=== PATIENT | male | born 1970 | race Two or more races ===

== ENCOUNTER 2019-01-02 19:11 | Inpatient (IN) | payer MEDICAID, OTHER ==
[~2019-01-02] VITALS: Ht 167.6 cm; Wt 88.5 kg
[2019-01-02 19:30] VITALS: BP 127/75
[2019-01-02] MEDS ORDERED: LORazepam Inj 2mg/ml 1ml IV ONE (19:30)
--- NOTE | 2019-01-02 20:02 | Emergency Room Report ---
History of Present Illness General Chief Complaint: General Complaint Source: Patient, EMS Present Illness HPI Patient presents with a history of parathyroid disorder. He is brought in by EMS. He was apparently going between different procedures and became weak with total body tingling and feeling of disorientation. Paramedics found Accu-Chek to be normal. Patient denies pain at this time. He complains about generalized tingling and also tingling of his tongue and around his mouth. He denies chest pain, palpitations, nausea, vomiting, diarrhea or dysuria. He has generalized weakness. He states he feels anxious with this. Told that he has some renal problems. States had recent renal ultrasound. Family have CD of renal ultrasound. Told with parathyroidectomy the problems should be solved. 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 No sore throat, joint pain, rashes, depression, visual changes, headache. Allergies: Coded Allergies: No Known Allergies (Unverified , 01/02/19) Patient History Past Medical History: see triage record Social History: Denies: smoking, alcohol use, drug use Social History Narrative with family Reviewed Nursing Documentation: PMH: Agreed; PSxH: Agreed Review of Systems All Other Systems: negative except mentioned in HPI Physical Exam Vital Signs Date Time Temp Pulse Resp B/P (MAP) Pulse Ox O2 Delivery O2 Flow Rate FiO2 01/02/19 19:03 98.8 90 16 127/75 (92) 98 Room Air Sp02 EP Interpretation: reviewed, normal General Appearance: well appearing, no apparent distress, GCS 15, other - Eyes closed Head: normocephalic Eyes: bilateral eye normal inspection, bilateral eye PERRL, bilateral eye EOMI ENT: moist mucus membranes Neck: supple Respiratory: chest non-tender, lungs clear, normal breath sounds Cardiovascular #1: regular rate, rhythm Cardiovascular #2: 2+ radial (R) Gastrointestinal: normal inspection, normal bowel sounds, non tender, no mass, non-distended Genitourinary: no CVA tenderness Musculoskeletal: back normal, normal range of motion Neurologic: alert, oriented x3, motor strength/tone normal, DTRs symmetric, sensory intact - Reported tingling, cerebellar normal, speech normal Psychiatric: depressed affect Skin: no rash Medical Decision Making Diagnostic Impression: Primary Impression: Acute renal failure Qualified Codes: N17.9 - Acute kidney failure, unspecified Additional Impressions: Metabolic acidosis Hypokalemia Leukocytosis Qualified Codes: D72.828 - Other elevated white blood cell count Hypomagnesemia ER Course Patient presents with total body tingling with a history of parathyroid disorder. Differential includes anxiety, electrolyte abnormality including hypocalcemia and acute coronary syndrome amongst others. Evaluation will be with EKG, chest x-ray and labs including venous blood gas and ionized calcium. The patient will be treated with IV hydration and Ativan. Is placed on a box office attendant. EKG without injury. Chest x-ray normal. Labs with compensated metabolic acidosis. Leukocytosis. Renal failure and hypokalemia. Total calcium normal. In the face of acute renal failure with metabolic acidosis suspect renal tubular acidosis. No evidence of hyperventilation. Low potassium of concern. However in the face of acute renal failure potassium replacement problematic. Attempting to determine why ionized calcium was canceled. Magnesium added. Patient still symptomatic however somewhat improved with Ativan. In the face of weakness and tingling patient admitted for observation to determine the nature of the renal failure in the face of metabolic acidosis. Dialysis not indicated at this time. Discussed with . Admit telemetry observation. Late return of low magnesium. Attempting to determine why ionized calcium was canceled. Laboratory Tests Test 01/02/19 20:00 01/02/19 20:10 01/02/19 20:30 01/03/19 02:07 White Blood Count 13.7 K/UL (4.8-10.8) H Red Blood Count 4.17 M/UL (4.70-6.10) L Hemoglobin 13.3 G/DL (14.2-18.0) L Hematocrit 37.8 % (42.0-52.0) L Mean Corpuscular Volume 91 FL (80-99) Mean Corpuscular Hemoglobin 31.9 PG (27.0-31.0) H Mean Corpuscular Hemoglobin Concent 35.1 G/DL (32.0-36.0) Red Cell Distribution Width 10.9 % (11.6-14.8) L Platelet Count 253 K/UL (150-450) Mean Platelet Volume 6.8 FL (6.5-10.1) Neutrophils (%) (Auto) 65.5 % (45.0-75.0) Lymphocytes (%) (Auto) 22.1 % (20.0-45.0) Monocytes (%) (Auto) 10.5 % (1.0-10.0) H Eosinophils (%) (Auto) 0.7 % (0.0-3.0) Basophils (%) (Auto) 1.2 % (0.0-2.0) Prothrombin Time 9.3 SEC (9.30-11.50) Prothrombin Time INR 0.9 (0.9-1.1) PTT 20 SEC (23-33) L Urine Color Pale yellow Urine Appearance Clear Urine pH 6 (4.5-8.0) Urine Specific [place] 1.005 (1.005-1.035) Urine Protein Negative (NEGATIVE) Urine Glucose (UA) Negative (NEGATIVE) Urine Ketones Negative (NEGATIVE) Urine Blood Negative (NEGATIVE) Urine Nitrite Negative (NEGATIVE) Urine Bilirubin Negative (NEGATIVE) Urine Urobilinogen Normal MG/DL (0.0-1.0) Urine Leukocyte Esterase 1+ (NEGATIVE) H Urine RBC 0-2 /HPF (0 - 0) H Urine WBC 2-4 /HPF (0 - 0) Urine Squamous Epithelial Cells None /LPF (NONE/OCC) Urine Bacteria Few /HPF (NONE) Sodium Level 146 MMOL/L (136-145) H Potassium Level 3.0 MMOL/L (3.5-5.1) L Chloride Level 111 MMOL/L (98-107) H Carbon Dioxide Level 22 MMOL/L (21-32) Anion Gap 13 mmol/L (5-15) Blood Urea Nitrogen 28 mg/dL (7-18) H Creatinine 2.5 MG/DL (0.55-1.30) H Estimate Glomerular Filtration Rate 27.9 mL/min (>60) Glucose Level 110 MG/DL (74-106) H Calcium Level 8.3 MG/DL (8.5-10.1) L Total Bilirubin 0.4 MG/DL (0.2-1.0) Aspartate Amino Transferase (AST) 24 U/L (15-37) Alanine Aminotransferase (ALT) 30 U/L (12-78) Alkaline Phosphatase 1298 U/L (46-116) H Total Creatine Kinase 168 U/L (26-308) Troponin I 0.000 ng/mL (0.000-0.056) Pro-B-Type Natriuretic Peptide 530 pg/mL (0-125) H Total Protein 8.0 G/DL (6.4-8.2) Albumin 3.8 G/DL (3.4-5.0) Globulin 4.2 g/dL Albumin/Globulin Ratio 0.9 (1.0-2.7) L Urine Opiates Screen Negative (NEGATIVE) Urine Barbiturates Screen Negative (NEGATIVE) Phencyclidine (PCP) Screen Negative (NEGATIVE) Urine Amphetamines Screen Negative (NEGATIVE) Urine Benzodiazepines Screen Negative (NEGATIVE) Urine Cocaine Screen Negative (NEGATIVE) Urine Marijuana (THC) Screen Negative (NEGATIVE) Venous Blood pH 7.296 Venous Blood Partial Pressure CO2 38.2 Venous Blood Partial Pressure O2 45.3 Venous Blood HCO3 18.2 Venous Blood Total Carbon Dioxide 38.2 Venous Bld O2 Saturation (Measured) Pending Venous Blood Oxygen Saturation 71.6 Venous Blood Base Excess -7.6 Methemoglobin 0.6 Sodium (Blood Gas) Pending Urine Random Sodium 37 mmol/L (20-110) Urine Creatinine 137.7 MG/DL (30.0-125.0) H Magnesium Level 1.3 MG/DL (1.8-2.4) L EKG Diagnostic Results Rate: normal Rhythm: NSR ST Segments: no acute changes Rhythm Strip Diag. Results EP Interpretation: yes Rhythm: NSR, no PVC's, no ectopy Chest X-Ray Diagnostic Results Chest X-Ray Diagnostic Results : Chest X-Ray Ordered: Yes # of Views/Limited/Complete: 1 View Indication: Shortness of Breath EP Interpretation: Yes Interpretation: no consolidation, no effusion, no pneumothorax Impression: No acute disease Electronically Signed by: Electronically signed by Israel Rojo MD Last Vital Signs Date Time Temp Pulse Resp B/P (MAP) Pulse Ox O2 Delivery O2 Flow Rate FiO2 01/03/19 01:01 Room Air 01/03/19 00:34 99.1 118/68 (85) 99 01/02/19 23:45 84 14 Status: improved Disposition: PLACE IN OBSERVATION Condition: Serious Israel Rojo MD Jan 02, 2019 20:02
[2019-01-02 20:53] LABS: BASOPHILS % (AUTO) 1.2 % (0.0-2.0); EOSINOPHILS % (AUTO) 0.7 % (0.0-3.0); HEMATOCRIT 37.8 % (42.0-52.0); HEMOGLOBIN 13.3 G/DL (14.2-18.0); LYMPHOCYTES % (AUTO) 22.1 % (20.0-45.0); MEAN CORPUSCULAR VOLUME 91 FL (80-99); MONOCYTES % (AUTO) 10.5 % (1.0-10.0); NEUTROPHILS % (AUTO) 65.5 % (45.0-75.0); PLATELET COUNT 253 K/UL (150-450); RED BLOOD COUNT 4.17 M/UL (4.70-6.10); RED CELL DISTRIBUTION WIDTH 10.9 % (11.6-14.8); WHITE BLOOD COUNT 13.7 K/UL (4.8-10.8)
[2019-01-02 20:58] LABS: APPEARANCE,URINE CLEAR; BILIRUBIN, URINE NEGATIVE (NEGATIVE); COLOR,URINE PALE YELLOW; GLUCOSE, URINE (UA) NEGATIVE (NEGATIVE); KETONES,URINE NEGATIVE (NEGATIVE); LEUKOCYTE ESTERASE ,URINE 1+ (NEGATIVE); NITRITE,URINE NEGATIVE (NEGATIVE); PH,URINE 6 (4.5-8.0); PROTEIN,URINE NEGATIVE (NEGATIVE); UROBILINOGEN,URINE NORMAL MG/DL (0.0-1.0)
[2019-01-02 21:08] LABS: INR 0.9 (0.9-1.1)
[2019-01-02 21:15] LABS: ANION GAP 13 mmol/L (5-15); BLOOD UREA NITROGEN 28 mg/dL (7-18); CALCIUM 8.3 MG/DL (8.5-10.1); CARBON DIOXIDE 22 MMOL/L (21-32); CHLORIDE 111 MMOL/L (98-107); CREATININE 2.5 MG/DL (0.55-1.30); SODIUM 146 MMOL/L (136-145)
[2019-01-02 21:29] LABS: ALANINE AMINOTRANSFERASE 30 U/L (12-78); ALBUMIN 3.8 G/DL (3.4-5.0); ALBUMIN/GLOBULIN RATIO 0.9 (1.0-2.7); ALKALINE PHOSPHATASE 1298 U/L (46-116); ASPARTATE AMINO TRANSFERASE 24 U/L (15-37); BILIRUBIN,TOTAL 0.4 MG/DL (0.2-1.0); CREATINE KINASE 168 U/L (26-308)
[2019-01-02 22:12] VITALS: BP 128/72
[2019-01-03 00:34] VITALS: BP 118/68
[2019-01-03] MEDS ORDERED: NKM (00:43)
[2019-01-03 04:00] VITALS: BP 123/68
[2019-01-03 08:00] VITALS: BP 118/67
[2019-01-03] MEDS: Magnesium Oxide 400mg tab ORAL SCH ×3 (10:29→17:45)
[2019-01-03] MEDS: Calcium Carbonate 500mg w/Vit D 200iu tab ORAL SCH ×3 (10:29→17:45)
--- NOTE | 2019-01-03 11:43 | Diagnostic Imaging Report ---
Indication: Dyspnea Comparison: None A single view chest radiograph was obtained. Findings: Cardiomediastinal appearance is within normal limits for age. The lungs are clear. Pulmonary vascularity is appropriate. The diaphragmatic contour is smooth and costophrenic angles are sharp. No pleural effusions are identified. The bones are unremarkable. Impression: No acute findings
[2019-01-03 12:00] VITALS: BP 118/74
[2019-01-03 13:34] LABS: ANION GAP 12 mmol/L (5-15); BLOOD UREA NITROGEN 23 mg/dL (7-18); CALCIUM 7.7 MG/DL (8.5-10.1); CARBON DIOXIDE 21 MMOL/L (21-32); CHLORIDE 114 MMOL/L (98-107); CREATININE 2.1 MG/DL (0.55-1.30); POTASSIUM 3.4 MMOL/L (3.5-5.1); SODIUM 146 MMOL/L (136-145)
[2019-01-03] MEDS ORDERED: Calcium Gluconate 10% 2 GM in NS 110 ML IVPB SCH (14:00)
--- NOTE | 2019-01-03 15:55 | Diagnostic Imaging Report ---
Indication:Elevated Bun and Creatinine. Technique: Grayscale and duplex Doppler imaging of the kidneys performed. Comparison: None Findings: The size, contour, and echogenicity of both kidneys are within normal limits. There is no hydronephrosis.. The right kidney measures 10.7 cm. in length. The left kidney measures 10 cm. in length. The IVC is patent. Urinary bladder is unremarkable. IMPRESSION: Negative ultrasound the kidneys.
[2019-01-03 16:00] VITALS: BP 128/75
--- NOTE | 2019-01-03 17:00 | Consultation ---
DATE OF CONSULTATION: 01/03/2019 CONSULTING PHYSICIAN: Gonzalo Dukes M.D. REASON FOR CONSULTATION: 1. Acute kidney. 2. Hypocalcemia. HISTORY OF PRESENT ILLNESS: The patient is a pleasant 48-year-old gentleman with a history of a parathyroid disorder, who was admitted overnight for further evaluation and care of body tingling and mild disorientation, not feeling well. The patient denies any chest pain, nausea, vomiting, or diarrhea. Noted to have electrolyte abnormalities with calcium of 1.01, magnesium of 1.3, and creatinine of 2.5. The patient states he has not had any renal dysfunction in the past. Also noted to be hypokalemic with potassium at 3.0. PAST MEDICAL HISTORY: Parathyroid disorder. ALLERGIES: No known drug allergies. SOCIAL HISTORY: No tobacco, alcohol, or illicit drug use. FAMILY HISTORY: Positive for hypertension. REVIEW OF SYSTEMS: NEUROLOGIC: The patient denies headache, change in vision, syncope, or presyncopal episodes. CARDIOVASCULAR: No current chest pain, palpitations, or angina. PULMONARY: No difficulty breathing, productive cough, or sputum. GASTROINTESTINAL/GENITOURINARY: No nausea, vomiting, or diarrhea. ENDOCRINE: No night sweats, fevers, or chills. MUSCULOSKELETAL: The patient is feeling mildly tingling over his extremities. PHYSICAL EXAMINATION: VITAL SIGNS: Blood pressure 118/67, respiratory rate 18, pulse 85, and temperature 98.1. 98% oxygen saturation on room air. GENERAL: The patient is awake and alert, not in distress. HEENT: Extraocular muscles intact. No lymphadenopathy noted. CARDIOVASCULAR: S1, S2. No rubs or gallops. PULMONARY: Clear to auscultation bilaterally. No rales, rhonchi, or wheezes. ABDOMEN: Nondistended and nontender. EXTREMITIES: No edema noted. LABORATORY DATA: Labs dated January 02, 2019 - sodium 146, potassium 3. Calcium ionized 1.01. Magnesium 1.3. Hemoglobin 13.3, white cell count 13.7, and platelet count 253,000. ASSESSMENT: 1. Acute kidney injury. At this time most likely secondary to component of intravascular volume depletion. We will continue IV hydration. 2. Parathyroid disorder. Most likely the patient may have been hyperthyroid and is now hypoparathyroid, on calcium and vitamin D. We will replace his calcium and check a PTH level. We will further investigate underlying etiology of parathyroid disorder. 3. Hypomagnesemia and hypokalemia. We will replace on a daily basis. Repeat labs are currently pending. 4. Dehydration. Continue IV fluids. 5. Acute kidney injury. At this time, etiology not entirely clear. Renal ultrasound ordered. Possibility of intravascular volume depletion. Recheck labs and continue hydration. Gonzalo Dukes MD DR: LES JOB#: [id number] CC:
--- NOTE | 2019-01-03 17:45 | History and Physical Report ---
DATE OF ADMISSION: 01/02/2019 HISTORY OF PRESENT ILLNESS: This is a 48-year-old male, who is currently undergoing treatment for hyperparathyroidism. He came in, brought in by paramedics due to feeling of being disoriented, feeling weak, and having tingling in his body. His Accu-Checks were normal, however, in the ER, he was found to be hypocalcemic and hypomagnesemic. He was given calcium and magnesium, and admitted to the hospital. He is also found to be having acute renal failure and was given IV hydration. It is unclear to me if he has already undergone atherectomy or not. PAST MEDICAL HISTORY: Notable for hyperparathyroidism. HOME MEDICATIONS: The patient unable to recall. REVIEW OF SYSTEMS: Denies any headaches, hematemesis, melena, hematochezia, night sweats, or weight loss. PHYSICAL EXAMINATION: GENERAL: Reveals a 48-year-old male. HEENT: Unremarkable. LUNGS: Clear breath sounds bilaterally. HEART: Normal heart sounds. ABDOMEN: Soft. EXTREMITIES: There is no edema. NEUROLOGIC: Nonfocal. LABORATORY DATA: Lab testing is notable for ionized calcium of 1.0. White count [id number], hemoglobin of 13, and platelet count is normal. Creatinine 2.5. Sodium 146, potassium 3. IMPRESSION: 1. disorder with hypokalemia and hyponatremia. 2. Acute renal failure. 3. Hypocalcemia. 4. Hypomagnesemia. DISCUSSION: Admit to the hospital. Start IV hydration. Consult Nephrology. Continue present care. We will replace potassium, magnesium, and calcium. We will follow carefully. Brayan Harding M.D. DR: ANITA JOB#: [id number] CC:
[2019-01-03 20:00] VITALS: BP 116/63
[2019-01-04] VITALS: BP 122/72
[2019-01-04 04:00] VITALS: BP 121/65
[2019-01-04 06:32] LABS: BASOPHILS % (AUTO) 0.7 % (0.0-2.0); EOSINOPHILS % (AUTO) 1.1 % (0.0-3.0); HEMATOCRIT 30.4 % (42.0-52.0); HEMOGLOBIN 10.4 G/DL (14.2-18.0); LYMPHOCYTES % (AUTO) 32.5 % (20.0-45.0); MEAN CORPUSCULAR VOLUME 90 FL (80-99); MONOCYTES % (AUTO) 10.4 % (1.0-10.0); NEUTROPHILS % (AUTO) 55.3 % (45.0-75.0); PLATELET COUNT 231 K/UL (150-450); RED BLOOD COUNT 3.39 M/UL (4.70-6.10); RED CELL DISTRIBUTION WIDTH 11.3 % (11.6-14.8); WHITE BLOOD COUNT 9.8 K/UL (4.8-10.8)
[2019-01-04 07:02] LABS: ALANINE AMINOTRANSFERASE 25 U/L (12-78); ALBUMIN 3.1 G/DL (3.4-5.0); ALBUMIN/GLOBULIN RATIO 0.8 (1.0-2.7); ALKALINE PHOSPHATASE 1122 U/L (46-116); ANION GAP 13 mmol/L (5-15); ASPARTATE AMINO TRANSFERASE 23 U/L (15-37); BILIRUBIN,TOTAL 0.4 MG/DL (0.2-1.0); BLOOD UREA NITROGEN 21 mg/dL (7-18); CALCIUM 7.3 MG/DL (8.5-10.1); CARBON DIOXIDE 18 MMOL/L (21-32); CHLORIDE 114 MMOL/L (98-107); CREATININE 2.1 MG/DL (0.55-1.30); POTASSIUM 3.1 MMOL/L (3.5-5.1); SODIUM 145 MMOL/L (136-145)
[2019-01-04 08:00] VITALS: BP 116/72
--- NOTE | 2019-01-04 08:10 | Nephrology Progress Note ---
Assessment/Plan Assessment/Plan: A/P 1) Hypocalcemia- being replaced - PTH pending - ?? says awaiting PTHdectomy- unclear what treatment he has received 2) Hypokalemia and MG- all being replaced today 3) MICHEL on CKD??- Cr down to 2.1 - IVFs and Renal US negative Subjective Date patient seen: Jan 04, 2019 Time patient seen: 08:05 ROS Limited/Unobtainable: No Neurologic/Psychiatric: Reports: tingling Allergies: Coded Allergies: No Known Allergies (Unverified , 01/02/19) Subjective Patient with tingling in hand Objective Last 24 Hour Vital Signs Date Time Temp Pulse Resp B/P (MAP) Pulse Ox O2 Delivery O2 Flow Rate FiO2 01/04/19 04:00 76 01/04/19 04:00 98.1 80 17 121/65 (83) 98 01/04/19 00:00 98.9 72 16 122/72 (89) 98 01/04/19 00:00 88 01/03/19 21:00 Room Air 01/03/19 20:00 99.2 91 17 116/63 (80) 97 01/03/19 20:00 92 01/03/19 16:00 98.7 96 18 128/75 (92) 98 01/03/19 16:00 92 01/03/19 12:00 98.6 89 18 118/74 (89) 98 01/03/19 12:00 85 01/03/19 09:00 Room Air Intake and Output 01/03/19 01/04/19 19:00 07:00 Intake Total 840 ml 1007.5 ml Balance 840 ml 1007.5 ml Intake Oral 840 ml IV Total 1007.5 ml # Voids 3 Laboratory Tests 01/03/19 12:50: Sodium Level 146H, Potassium Level 3.4L, Chloride Level 114H, Carbon Dioxide Level 21, Anion Gap 12, Blood Urea Nitrogen 23H, Creatinine 2.1H, Estimat Glomerular Filtration Rate 34.2, Glucose Level 114H, Calcium Level 7.7L 01/04/19 05:33: Sodium Level 145, Potassium Level 3.1L, Chloride Level 114H, Carbon Dioxide Level 18L, Anion Gap 13, Blood Urea Nitrogen 21H, Creatinine 2.1H, Estimat Glomerular Filtration Rate 34.2, Glucose Level 97, Calcium Level 7.3L, White Blood Count 9.8, Red Blood Count 3.39L, Hemoglobin 10.4L, Hematocrit 30.4L, Mean Corpuscular Volume 90, Mean Corpuscular Hemoglobin 30.8, Mean Corpuscular Hemoglobin Concent 34.3, Red Cell Distribution Width 11.3L, Platelet Count 231, Mean Platelet Volume 5.9L, Neutrophils (%) (Auto) 55.3, Lymphocytes (%) (Auto) 32.5, Monocytes (%) (Auto) 10.4H, Eosinophils (%) (Auto) 1.1, Basophils (%) ( Auto) 0.7, Ionized Calcium (Measured) 1.02L, Magnesium Level 1.1L, Total Bilirubin 0.4, Aspartate Amino Transf (AST/SGOT) 23, Alanine Aminotransferase ( ALT/SGPT) 25, Alkaline Phosphatase 1122H, Total Protein 6.8, Albumin 3.1L, Globulin 3.7, Albumin/Globulin Ratio 0.8L Height (Feet): 5 Height (Inches): 6.00 Weight (Pounds): 188 General Appearance: no apparent distress, alert EENT: normal ENT inspection Neck: normal alignment, supple Cardiovascular: normal rate, regular rhythm Respiratory/Chest: lungs clear, normal breath sounds Abdomen: non tender, soft Edema: no edema noted Arm (L), no edema noted Arm (R), no edema noted Leg (L), no edema noted Leg (R), no edema noted Pedal (L), no edema noted Pedal (R), no edema noted Generalized Gonzalo Dukes MD Jan 04, 2019 08:10
[2019-01-04] MEDS: Magnesium Oxide 400mg tab ORAL SCH ×3 (08:33→18:00)
[2019-01-04] MEDS: Calcium Carbonate 500mg w/Vit D 200iu tab ORAL SCH ×3 (08:33→18:00)
[2019-01-04] MEDS ORDERED: Magnesium Oxide 400mg tab ORAL SCH (09:30)
--- NOTE | 2019-01-04 09:30 | Pulmonology Progress Note ---
Assessment/Plan Assessment/Plan IMPRESSION: 1. Electrolyte disorder with hypokalemia and hyponatremia. 2. Acute renal failure. 3. Hypocalcemia. 4. Hypomagnesemia. DISCUSSION: Admitted to the hospital. Continue IV hydration. Consult from Nephrology noted. Continue present care. I will replace potassium, magnesium, and calcium. I will follow carefully. Endocrine consult requested Brayan Harding M.D. Subjective Interval Events: None new Constitutional: Reports: no symptoms HEENT: Repors: no symptoms Respiratory: Reports: no symptoms Cardiovascular: Reports: no symptoms Gastrointestinal/Abdominal: Reports: no symptoms Allergies: Coded Allergies: No Known Allergies (Unverified , 01/02/19) Objective Last 24 Hour Vital Signs Date Time Temp Pulse Resp B/P (MAP) Pulse Ox O2 Delivery O2 Flow Rate FiO2 01/04/19 04:00 76 01/04/19 04:00 98.1 80 17 121/65 (83) 98 01/04/19 00:00 98.9 72 16 122/72 (89) 98 01/04/19 00:00 88 01/03/19 21:00 Room Air 01/03/19 20:00 99.2 91 17 116/63 (80) 97 01/03/19 20:00 92 01/03/19 16:00 98.7 96 18 128/75 (92) 98 01/03/19 16:00 92 01/03/19 12:00 98.6 89 18 118/74 (89) 98 01/03/19 12:00 85 Intake and Output 01/03/19 01/04/19 19:00 07:00 Intake Total 840 ml 1007.5 ml Balance 840 ml 1007.5 ml Intake Oral 840 ml IV Total 1007.5 ml # Voids 3 General Appearance: no acute distress HEENT: normocephalic Respiratory/Chest: chest wall non-tender, lungs clear Cardiovascular: normal peripheral pulses, normal rate Laboratory Tests 01/03/19 12:50: Sodium Level 146H, Potassium Level 3.4L, Chloride Level 114H, Carbon Dioxide Level 21, Anion Gap 12, Blood Urea Nitrogen 23H, Creatinine 2.1H, Estimat Glomerular Filtration Rate 34.2, Glucose Level 114H, Calcium Level 7.7L 01/04/19 05:33: Sodium Level 145, Potassium Level 3.1L, Chloride Level 114H, Carbon Dioxide Level 18L, Anion Gap 13, Blood Urea Nitrogen 21H, Creatinine 2.1H, Estimat Glomerular Filtration Rate 34.2, Glucose Level 97, Calcium Level 7.3L, White Blood Count 9.8, Red Blood Count 3.39L, Hemoglobin 10.4L, Hematocrit 30.4L, Mean Corpuscular Volume 90, Mean Corpuscular Hemoglobin 30.8, Mean Corpuscular Hemoglobin Concent 34.3, Red Cell Distribution Width 11.3L, Platelet Count 231, Mean Platelet Volume 5.9L, Neutrophils (%) (Auto) 55.3, Lymphocytes (%) (Auto) 32.5, Monocytes (%) (Auto) 10.4H, Eosinophils (%) (Auto) 1.1, Basophils (%) ( Auto) 0.7, Calcium (Send out) [Pending], Ionized Calcium (Measured) 1.02L, Magnesium Level 1.1L, Total Bilirubin 0.4, Aspartate Amino Transf (AST/SGOT) 23 , Alanine Aminotransferase (ALT/SGPT) 25, Alkaline Phosphatase 1122H, Total Protein 6.8, Albumin 3.1L, Globulin 3.7, Albumin/Globulin Ratio 0.8L, Parathyroid Hormone (Intact) [Pending] Current Medications Medications (Trade) Dose Ordered Sig/Aime Route PRN Reason Start Time Stop Time Status Last Admin Dose Admin Acetaminophen (Tylenol) 650 mg Q6H PRN ORAL Mild Pain/Temp > 100.5 01/03/19 01:45 02/02/19 01:44 01/03/19 02:25 Calcium Gluconate 2 gm/Sodium Chloride 130 ml @ 130 mls/hr ONCE ONCE IVPB 01/04/19 11:00 01/04/19 11:59 Calcium/Vitamin D (OsCal D) 1 tab THREE TIMES A DAY ORAL 01/03/19 10:15 02/02/19 10:14 01/04/19 08:33 Magnesium Oxide (Mag-Ox 400mg) 400 mg THREE TIMES A DAY ORAL 01/03/19 10:15 02/02/19 10:14 01/04/19 08:33 Magnesium Sulfate 100 ml @ 100 mls/hr Q1H IVPB 01/04/19 08:30 01/04/19 10:29 01/04/19 08:32 Potassium Chloride 100 ml @ 100 mls/hr Q1H IVPB 01/04/19 08:30 01/04/19 10:29 01/04/19 08:32 Potassium Chloride (K-Dur) 40 meq DAILY ORAL 01/04/19 09:00 02/03/19 08:59 01/04/19 08:33 Sodium 1,000 ml @ 75 mls/hr [id number] IV 01/04/19 09:30 02/03/19 09:29 Brayan Harding MD Jan 04, 2019 09:30
[2019-01-04] MEDS: 1/2NS w/KCl 20mEq 1000ml 1,000 ML IV SCH ×2 (10:40→22:22)
[2019-01-04] MEDS ORDERED: Calcium Gluconate 10% 2 GM in NS 110 ML IVPB ONE (11:00)
[2019-01-04 12:00] VITALS: BP 122/74
--- NOTE | 2019-01-04 15:07 | Cardiology Report ---
APPROVED REPORT EKG Measurement Heart [id number] Normal sinus rhythm Normal ECG
[2019-01-04 16:00] VITALS: BP 119/71
[2019-01-04 20:00] VITALS: BP 126/85
[2019-01-05] VITALS: BP 129/70
[2019-01-05 04:00] VITALS: BP 115/68
--- NOTE | 2019-01-05 06:37 | Pulmonology Progress Note ---
Assessment/Plan Assessment/Plan IMPRESSION: 1. Electrolyte disorder with hypokalemia and hyponatremia. 2. Acute renal failure. 3. Hypocalcemia. 4. Hypomagnesemia. DISCUSSION: Admitted to the hospital. Continue IV hydration. Consult from Nephrology noted. Continue present care. I have replaced potassium, magnesium, and calcium. I will follow carefully. Await AM labs Endocrine consult requested Brayan Harding M.D. Subjective Interval Events: None new noted Constitutional: Reports: no symptoms HEENT: Repors: no symptoms Respiratory: Reports: no symptoms Cardiovascular: Reports: no symptoms Gastrointestinal/Abdominal: Reports: no symptoms Genitourinary: Reports: no symptoms Neurologic: Reports: no symptoms Allergies: Coded Allergies: No Known Allergies (Unverified , 01/02/19) Objective Last 24 Hour Vital Signs Date Time Temp Pulse Resp B/P (MAP) Pulse Ox O2 Delivery O2 Flow Rate FiO2 01/05/19 04:00 99.3 79 18 115/68 (84) 98 01/05/19 04:00 71 01/05/19 00:00 85 01/05/19 00:00 99.7 85 18 129/70 (89) 97 01/04/19 23:03 85 01/04/19 21:00 Room Air 01/04/19 20:00 99.3 85 17 126/85 (99) 98 01/04/19 16:00 87 01/04/19 16:00 97.8 78 17 119/71 (87) 97 01/04/19 12:00 84 01/04/19 12:00 98.0 77 18 122/74 (90) 97 01/04/19 09:00 Room Air 01/04/19 08:00 97.7 76 17 116/72 (87) 98 01/04/19 08:00 92 Intake and Output 01/04/19 01/05/19 18:59 06:59 Intake Total 1855 ml Balance 1855 ml Intake Oral 800 ml IV Total 1055 ml General Appearance: no acute distress HEENT: normocephalic Respiratory/Chest: chest wall non-tender, lungs clear Cardiovascular: normal peripheral pulses, normal rate Abdomen: normal bowel sounds Current Medications Medications (Trade) Dose Ordered Sig/Aime Route PRN Reason Start Time Stop Time Status Last Admin Dose Admin Acetaminophen (Tylenol) 650 mg Q6H PRN ORAL Mild Pain/Temp > 100.5 01/03/19 01:45 02/02/19 01:44 01/05/19 00:30 Calcium Carbonate (Os-Marcial) 1,250 mg Q8HR ORAL 01/04/19 14:00 02/03/19 13:59 01/05/19 05:11 Calcium/Vitamin D (OsCal D) 1 tab THREE TIMES A DAY ORAL 01/03/19 10:15 02/02/19 10:14 01/04/19 18:00 Magnesium Oxide (Mag-Ox 400mg) 400 mg THREE TIMES A DAY ORAL 01/03/19 10:15 02/02/19 10:14 01/04/19 18:00 Potassium Chloride (K-Dur) 40 meq TWICE A DAY ORAL 01/04/19 18:00 02/03/19 17:59 01/04/19 18:00 Sodium 1,000 ml @ 75 mls/hr [id number] IV 01/04/19 09:30 02/03/19 09:29 01/04/19 22:22 Brayan Harding MD Jan 05, 2019 06:36
[2019-01-05 08:00] VITALS: BP 124/72
[2019-01-05 08:09] LABS: ALANINE AMINOTRANSFERASE 26 U/L (12-78); ALBUMIN 3.4 G/DL (3.4-5.0); ALBUMIN/GLOBULIN RATIO 0.9 (1.0-2.7); ALKALINE PHOSPHATASE 1246 U/L (46-116); ANION GAP 14 mmol/L (5-15); ASPARTATE AMINO TRANSFERASE 28 U/L (15-37); BILIRUBIN,TOTAL 0.5 MG/DL (0.2-1.0); BLOOD UREA NITROGEN 20 mg/dL (7-18); CALCIUM 8.2 MG/DL (8.5-10.1); CARBON DIOXIDE 17 MMOL/L (21-32); CHLORIDE 116 MMOL/L (98-107); POTASSIUM 3.8 MMOL/L (3.5-5.1); SODIUM 147 MMOL/L (136-145)
[2019-01-05] MEDS: Calcium Carbonate 500mg w/Vit D 200iu tab ORAL SCH ×2 (08:34→13:31)
[2019-01-05] MEDS: Magnesium Oxide 400mg tab ORAL SCH ×2 (08:34→13:30)
--- NOTE | 2019-01-05 08:45 | Consultation ---
DATE OF CONSULTATION: 01/05/2019 ENDOCRINOLOGY CONSULTATION CONSULTING PHYSICIAN: Avi Chaudhary M.D. REFERRING PHYSICIAN: Brayan Harding M.D. REASON FOR CONSULTATION: Hypocalcemia. HISTORY OF PRESENT ILLNESS: The patient is a 48-year-old male who presented to the hospital due to disorientation, weakness, and having the tingling in his body. He was found to be severely hypocalcemic. The patient was told that he has been under treatment for hyperparathyroidism, but not sure exactly what kind of treatment he has been receiving. The patient was also noted to be hypomagnesemic. The patient was found to be in acute renal failure. Due to the acute renal failure, given IV hydration. I was called to assist in the management of hypocalcemia. Nephrology is consulted as well. PAST MEDICAL HISTORY: Questionable hyperparathyroidism. MEDICATIONS AT HOME: None. FAMILY HISTORY: Noncontributory. SOCIAL HISTORY: No smoking, alcohol, or drug use. REVIEW OF SYSTEMS: As per HPI. PHYSICAL EXAMINATION: GENERAL: He is awake and alert. VITAL SIGNS: Blood pressure is 130/80, pulse of 80, temperature 98.2, respiratory rate of 18. HEENT: Pupils reactive to light. Sclerae anicteric. NECK: No JVD. No thyromegaly. LUNGS: Clear. HEART: Regular rate and rhythm. ABDOMEN: Positive bowel sounds. EXTREMITIES: No clubbing, cyanosis, or edema. LABORATORY VALUES: Sodium 145, potassium 3.9, chloride 114, bicarb 18, BUN 21, creatinine 2.1, glucose 97. Alkaline phosphatase of 1122. Magnesium of 1.3. DIAGNOSES: 1. Hypocalcemia. 2. Hypomagnesemia. 3. Hypokalemia. DISCUSSION: The patient tells me that he has hyperparathyroidism and he was told he needs parathyroid surgery. He presented with hypocalcemia and he was receiving some sort of treatment, which he does not know the name. There is a possibility of the patient was treated with high dose of Sensipar and that made him hypocalcemic. Other possibility is that he was also being treated with IV bisphosphonate and maybe that made him hypocalcemic. The condition has been going on for 4 to 5 months. So, I doubt that the patient has any genetic disorders causing hypocalcemia or hypoparathyroidism since then he would have issues with calcium for many years. For the time being, we will replace the calcium, replace the magnesium, and we will follow the PTH level, which is pending. I will also send a vitamin D level to rule out severe vitamin D deficiency and also phosphorus levels will be sent to confirm such diagnosis. If so, the patient will benefit from vitamin D replacement, which will correct the calcium. Magnesium should be replaced regardless. I will follow the results and further advice. Thank you, Dr. Harding, for the courtesy of this consultation. Avi Chaudhary M.D. DR: GOMEZ JOB#: [id number] CC: NILO
[2019-01-05 08:57] LABS: PHOSPHORUS 2.5 MG/DL (2.5-4.9)
--- NOTE | 2019-01-05 09:12 | Nephrology Progress Note ---
Assessment/Plan Assessment/Plan: A/P 1) Hypocalcemia- being replaced prn - PTH pending - ?? says awaiting PTHdectomy- unclear what treatment he has received ( Sensipar/bisphosphonate etc) 2) Hypokalemia and MG- all being replaced today again 3) MICHEL on CKD??- Cr down to 2.1 - IVFs and Renal US negative Will assist with DC and f/u renal as out patient Subjective Date patient seen: Jan 05, 2019 Time patient seen: 09:10 ROS Limited/Unobtainable: No Allergies: Coded Allergies: No Known Allergies (Unverified , 01/02/19) Subjective Patient stable no complaints Objective Last 24 Hour Vital Signs Date Time Temp Pulse Resp B/P (MAP) Pulse Ox O2 Delivery O2 Flow Rate FiO2 01/05/19 04:00 99.3 79 18 115/68 (84) 98 01/05/19 04:00 71 01/05/19 00:00 85 01/05/19 00:00 99.7 85 18 129/70 (89) 97 01/04/19 23:03 85 01/04/19 21:00 Room Air 01/04/19 20:00 99.3 85 17 126/85 (99) 98 01/04/19 16:00 87 01/04/19 16:00 97.8 78 17 119/71 (87) 97 01/04/19 12:00 84 01/04/19 12:00 98.0 77 18 122/74 (90) 97 Intake and Output 01/04/19 01/05/19 18:59 06:59 Intake Total 1855 ml Balance 1855 ml Intake Oral 800 ml IV Total 1055 ml Laboratory Tests 01/05/19 05:45: Sodium Level 147H, Potassium Level 3.8, Chloride Level 116H, Carbon Dioxide Level 17L, Anion Gap 14, Blood Urea Nitrogen 20H, Creatinine 2.0H, Estimat Glomerular Filtration Rate 36.1, Glucose Level 81, Calcium Level 8.2L, Ionized Calcium (Measured) 1.07L, Phosphorus Level 2.5, Magnesium Level 1.5L, Total Bilirubin 0.5, Aspartate Amino Transf (AST/SGOT) 28, Alanine Aminotransferase ( ALT/SGPT) 26, Alkaline Phosphatase 1246H, Total Protein 7.2, Albumin 3.4, Globulin 3.8, Albumin/Globulin Ratio 0.9L, Vitamin D 25-Hydroxy [Pending], 25- Hydroxy Vitamin D2 [Pending], 25-Hydroxy Vitamin D3 [Pending], Thyroid Stimulating Hormone (TSH) 3.720, Free Thyroxine [Pending] Height (Feet): 5 Height (Inches): 6.00 Weight (Pounds): 166 General Appearance: no apparent distress, alert EENT: normal ENT inspection Neck: normal alignment Cardiovascular: normal rate, regular rhythm Abdomen: non tender, soft Edema: no edema noted Arm (L), no edema noted Arm (R), no edema noted Leg (L), no edema noted Leg (R), no edema noted Pedal (L), no edema noted Pedal (R), no edema noted Generalized Gonzalo Dukes MD Jan 05, 2019 09:12
--- NOTE | 2019-01-05 09:15 | Discharge Instructions ---
Discharge Instructions Discharge Instructions Services at Discharge: day care Diet: 2 GM sodium (low sodium) Activity: no restrictions Follow Up Orders Follow up renal and PCP 1 week Continue Magnesium and calcium supplements For Congestive Heart Failure Reminder Report to your physician any weight gain of 5 pounds or more in one week. Gonzalo Dukes MD Jan 05, 2019 09:15
[2019-01-05] MEDS ORDERED: Calcium Gluconate 10% 2 GM in NS 110 ML IVPB ONE (11:00)
[2019-01-05 12:00] VITALS: BP 118/72
[2019-01-05 13:19] VITALS: BP 118/71
--- NOTE | 2019-01-06 08:08 | Discharge Summary ---
Discharge Summary Discharge Summary _ DATE OF ADMISSION: 01/02/2019 DATE OF DISCHARGE: 01/05/2019 DISCHARGED BY: Dr. Harding REASON FOR ADMISSION: 48 years old male with past medical history of parathyroid disorder,, hypertension, was brought by EMS, for evaluation due to total body tingling. Patient apparently was undergoing some treatment for hyperparathyroidism. Patient was not aware exactly what kind of treatment it was. Patient was told that he needs parathyroidectomy. The patient was treated with IV hydration and Ativan and placed on media monitor. Vital signs were stable. Laboratory work-up revealed compensated metabolic acidosis. CBC revealed leukocytosis WBC 13.7 , renal failure with BUN 28, creatinine 2.5 , hypokalemia potassium 3.0. Magnesium 1.3. Troponin negative , EKG revealed sinus rhythm ,no acute ischemic changes , pro BNP 530. Urinalysis revealed no evidence of urinary tract infection . Chest x-ray demonstrated no acute cardiopulmonary pathology. Patient admitted to telemetry floor CONSULTANTS: rn observation Dr.De Rasmussen manager meeting Dr. Chaudhary [facility] COURSE: Patient admitted to telemetry floor and started on IV hydration . Mechanic General Operational Test is closely followed. Per rn observation, acute kidney injury was most likely secondary to component of intravascular volume depletion. IV fluids continued. Renal ultrasound was negative. Renal parameters and electrolytes were closely monitored, nephrotoxins avoided , electrolytes were replaced as needed. BUN from 28 down to 20 and creatinine from 2.5 down to 2.0 upon discharge. Jewelry [employer]pper consulted for parathyroid disorder. Ionized calcium 1.01. Calcium was replaced. Per manager meeting, there was a possibility that he was treated with Sensipar, which made him hypocalcemic. Another possibility was that patient was treated with IV bisphosphonate and may made him hypocalcemic. At this time calcium was replaced, magnesium was replaced. Thyroid panel was stable. PTH intact 83 . All electrolytes were replaced. Patient was stable for discharge home. Outpatient follow-up with rn observation and manager meeting FINAL DIAGNOSES: Acute kidney injury on chronic kidney disease Hypomagnesemia and hypokalemia Dehydration Parathyroid disorder Hypocalcemia DISCHARGE MEDICATIONS: See Medication Reconciliation list. DISCHARGE INSTRUCTIONS: Patient was discharged home . Follow up with manager meeting and rn observation. I have been assigned to dictate discharge summary for this account. I was not involved in the patient's management. Alicia Burton NP Jan 06, 2019 08:07
== END 2019-01-05 13:48 | disposition home or self-care (01) | DRG 469 ==
LOC: EDBD 19:11 → EMR 19:40 → EDBEDREQ 21:20 → EDBEDREQSVC 21:20 → EDBEDREQ 22:14 → OBSVTOIN 23:10 → 2E 23:10 → EDBEDREQ 23:30
DX: N17.9 Acute kidney failure, unspecified (principal); E87.6 Hypokalemia; E87.2 Acidosis; E21.3 Hyperparathyroidism, unspecified; I12.9 Hypertensive chronic kidney disease with stage 1 through stage 4 chronic kidney disease, or unspecified chronic kidney disease; N18.9 Chronic kidney disease, unspecified; E83.42 Hypomagnesemia; E86.0 Dehydration; E21.5 Disorder of parathyroid gland, unspecified
CPT/HCPCS: 36415; 71045; 76770; 80048; 80053; 80307; 81003; 82306; 82330; 82550; 82570; 83735; 83880; 83970; 84100; 84300; 84439; 84443; 84484; 85025; 85610; 85730; 93005; 96360; 96361; 96374; 99285; J8499